=== PATIENT | male | born 1975 | race Hispanic/Latino ===

== ENCOUNTER 2024-08-22 00:36 | Emergency (ER) | payer OTHER, SELFPAY ==
[2024-08-22] MEDS ORDERED: NA CHLORIDE 0.9% 500 ML ONE (00:55)
[2024-08-22] MEDS ORDERED: METOCLOPRAMIDE 10 MG/2mL INJ ONE (00:55)
[2024-08-22] MEDS ORDERED: KETOROLAC 30 MG/ML INJ ONE (00:55)
[2024-08-22] MEDS ORDERED: DIPHENHYDRAMINE 50 MG/ML VIAL ONE (00:56)
[2024-08-22 01:08] LABS: Absolute Eosinophils 0.2 K/uL (0-0.5); Absolute Lymphocytes (CBC) 1.8 K/uL (0.7-4.9); Absolute Monocytes 0.4 K/uL (0.1-1.3); Absolute Neutrophil 5.4 K/uL (1.8-8.0); Basophils % 0.4 % (0-1.3); Eosinophils % 2.9 % (0-4.4); Hematocrit 41.9 % (39.6-49.0); Hemoglobin 14.2 g/dL (13.6-17.9); Lymphocytes % 22.9 % (15.3-44.8); MCH 30.4 pg (27.0-35.0); MCHC 33.8 g/dL (32.0-36.0); MCV 89.9 fL (80-100); MPV 7.9 fL (7.6-11.3); Monocytes % 5.2 % (3.3-12.3); Neutrophils % 68.6 % (41.7-73.7); Platelets 308 thou/uL (152-406); RBC Red Blood Cell Count 4.65 M/uL (4.33-5.43); Red Cell Distribution Width 14.2 % (12.1-15.2)
[2024-08-22 01:28] LABS: Anion Gap 8.6 mEq/L (5.0-15.0); Potassium 3.6 mEq/L (3.5-5.1); Troponin High Sensitivity 3.5 pg/mL (<58.9)
[2024-08-22 02:41] LABS: Specific Gravity 1.007 (1.005-1.030); Sqamous Epithelial None Seen /HPF (None Seen); Urine Bacteria None Seen /HPF (<20); Urine Bilirubin NEGATIVE (Negative); Urine Blood Negative (Negative); Urine Clarity Clear (Clear); Urine Color Colorless (Yellow); Urine Culture Reflex Order NOT NEEDED; Urine Glucose NEGATIVE (Negative); Urine Ketones NEGATIVE (Negative); Urine Micro Reflex YN NO BILL MICROSCOPIC; Urine Mucus Slight /HPF (None Seen); Urine Nitrite NEGATIVE (Negative); Urine Protein NEGATIVE (Negative); Urine RBC <5 /HPF (None Seen); Urine Urobilinogen Normal (Normal); Urine WBC <5 /HPF (<5); Urine pH 5.5 (5.0-7.0)
--- NOTE | 2024-08-22 02:42 | RAD REPORT ---
PROCEDURE: XR Chest, 1 View CLINICAL INDICATION: The patient is 49 years old and is Male; Chest pain. TECHNIQUE: Frontal view of the chest. COMPARISON: None. FINDINGS: LUNGS: Relatively low lung volumes bilaterally. Allowing for this and patient positioning, no focal consolidation. PLEURAL SPACE: No appreciable pleural effusion or pneumothorax. MEDIASTINUM: Unremarkable cardiomediastinal contour. BONES/JOINTS: Multilevel spondylosis. VASCULATURE: Calcified atherosclerosis of the thoracic aorta. IMPRESSION: Low lung volumes bilaterally. Allowing for this and patient positioning, no acute chest findings. Electronically signed by: Juan A Liz MD 08/22/2024 02:38 AM [facility] Due to temporary technical issues with the PACS/[employer] reporting system, reports are being tracy d by the in-house radiologist without review as a courtesy to ensure prompt reporting the interpreting radiologist is fully responsible for the content of the report. Transcribed Date/Time: 08/22/2024 2:42 AM
--- NOTE | 2024-08-22 05:27 | ER ---
Nurse's Notes [facility] Name: Gary De Santiago Age: 49 yrs Sex: Male : 1975 Arrival Date: 08/22/2024 Time: 00:36 Bed 17 Private MD: Diagnosis: Headache Presentation: 08/22 01:03 Chief complaint: Patient states: PT STATES HE WAS ASLEEP AND WOKE UP AT APPROX 2230 br2 WITH A HEADACHE AND PAIN TO NECK. PT DENIES CP. 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 Coronavirus screen: Client denies travel out of the [place] in the last 14 days. Ebola Screen: Patient denies exposure to infectious person. Patient denies travel to an Ebola-affected area in the 21 days before illness onset. Initial Sepsis Screen: Does the patient meet any 2 criteria? No. Patient's initial sepsis screen is negative. Does the patient have a suspected source of infection? No. Patient's initial sepsis screen is negative. Risk Assessment: Do you want to hurt yourself or someone else? Patient reports no desire to harm self or others. 01:03 Method Of Arrival: EMS: [facility] br2 01:03 Acuity: TALIA 3 br2 01:03 Onset of symptoms was August 21, 2024 at 22:30. br2 Triage Assessment: 01:06 General: Appears uncomfortable, Behavior is calm, cooperative. Pain: Complains of pain br2 in forehead Pain radiates to base of the skull Pain currently is 5 out of 10 on a pain scale. EENT: No signs and/or symptoms were reported regarding the EENT system. Neuro: Matthews Agitation-Sedation Scale (RASS): 0 - Alert and Calm Level of Consciousness is awake, alert, obeys commands, Oriented to person, place, time, situation. Cardiovascular: Capillary refill. Respiratory: Airway is patent Respiratory effort is even, unlabored, Respiratory pattern is regular, symmetrical. GI: No signs and/or symptoms were reported involving the gastrointestinal system. Abdomen is flat. : No signs and/or symptoms were reported regarding the genitourinary system. Derm: No signs and/or symptoms reported regarding the dermatologic system. Musculoskeletal: No signs and/or symptoms reported regarding the musculoskeletal system. Historical: - PMHx: 01:06 Parkinson's disease; br2 - Immunization history:: Adult Immunizations up to date. - Infectious Disease History:: Denies. - Social history:: Smoking status: Patient denies any tobacco usage or history of. Screenin:03 [facility] ED Fall Risk Assessment (Adult) History of falling in the last 3 months, br2 including since admission No falls in past 3 months (0 pts) Confusion or Disorientation No (0 pts) Intoxicated or Sedated No (0 pts) Impaired Gait Yes (1 pt) Mobility Assist Device Used Yes (1 pt) Altered Elimination No (0 pt) Score/Fall Risk Level 0 - 2 = Low Risk Oriented to surroundings. Abuse screen: Denies threats or abuse. Denies injuries from another. Nutritional screening: No deficits noted. Tuberculosis screening: No symptoms or risk factors identified. Assessment: 01:03 Reassessment: SEE TRIAGE ASSESSMENT. br2 01:40 Reassessment: Patient and/or family updated on plan of care and expected duration. Pain br2 level reassessed. Patient is alert, oriented x 3, equal unlabored respirations, skin warm/dry/pink. Patient states feeling better. Patient states symptoms have improved. 02:21 Reassessment: Patient and/or family updated on plan of care and expected duration. Pain br2 level reassessed. Patient is alert, oriented x 3, equal unlabored respirations, skin warm/dry/pink. Patient states feeling better. Patient states symptoms have improved. 02:28 Pain: Denies pain. br2 03:40 Reassessment: out of bed to ambulate with assist. pt states he feels like his left leg br2 is weaker than normal. 04:51 Reassessment: No changes from previously documented assessment. Patient and/or family br2 updated on plan of care and expected duration. Pain level reassessed. Patient is alert, oriented x 3, equal unlabored respirations, skin warm/dry/pink. Patient states feeling better. 05:24 Reassessment: No changes from previously documented assessment. Patient and/or family br2 updated on plan of care and expected duration. Pain level reassessed. Patient is alert, oriented x 3, equal unlabored respirations, skin warm/dry/pink. 06:40 Pain: Pain began. br2 Vital Signs: 01:03 BP 162 / 97; Pulse 105; Resp 21; Temp 97.2; Pulse Ox 99% on R/A; Weight 81.65 kg; br2 Height 5 ft. 4 in. ; Pain 5/10; 01:39 BP 121 / 79; Pulse 87; Resp 18 S; Pulse Ox 98% on R/A; br2 02:28 BP 138 / 85; Pulse 98; Resp 20; Pulse Ox 98% on R/A; Pain 0/10; br2 03:01 BP 136 / 90; Pulse 95; Resp 18; Pulse Ox 98% ; Pain 0/10; br2 04:17 BP 113 / 73; Pulse 82; Resp 18; Pulse Ox 98% ; br2 04:50 BP 107 / 71; Pulse 75; Resp 22; Pulse Ox 99% on R/A; br2 05:23 BP 108 / 76; Pulse 74; Resp 16; Pulse Ox 100% on R/A; br2 01:03 Body Mass Index 30.90 (81.65 kg, 162.56 cm) br2 01:03 Pain Scale: Adult br2 02:28 Pain Scale: Adult br2 03:01 Pain Scale: Adult br2 ED Course: 00:37 Patient arrived in ED. gm2 00:44 Nile Pierce MD is Attending Physician. ec2 00:52 Janelle Ferrara RN is Primary Nurse. br2 00:52 EKG done, by dietetic technician registered. af3 00:53 Basic Metabolic Panel Sent. br2 00:53 CBC with Diff Sent. br2 00:53 Troponin HS Sent. br2 01:03 Maintain EMS IV. IV Flushed right antecubital. br2 01:03 Patient has correct armband on for positive identification. Placed in gown. Bed in low br2 position. Call light in reach. Side rails up X 1. Provided Education on: PLAN OF CARE. Client placed on continuous cardiac and pulse oximetry monitoring. NIBP monitoring applied. monitor technician on. 01:03 Patient plan of care. br2 01:06 Triage completed. br2 01:10 XRAY Chest (1 view) In Process Unspecified. EDMS 03:46 CT Head Brain wo Cont In Process Unspecified. EDMS 05:42 No provider procedures requiring assistance completed. IV discontinued, intact, br2 bleeding controlled, No redness/swelling at site. Pressure dressing applied. Patient maintains SpO2 saturation greater than 95% on room air. Administered Medications: 01:02 Drug: metoCLOPramide IVP 10 mg IVP once; over 1 to 2 minutes Route: IVP; Site: right br2 antecubital; 01:30 Follow up: Response: No adverse reaction br2 01:02 Drug: diphenhydrAMINE IVP 12.5 mg IVP once Route: IVP; Site: right antecubital; br2 01:30 Follow up: Response: No adverse reaction br2 01:03 Drug: Ketorolac IVP 15 mg IVP once Route: IVP; Site: right antecubital; br2 01:30 Follow up: Response: No adverse reaction br2 01:03 Drug: NS 0.9% IV 500 ml 500 ml IV at 1 bolus once; to be given as a bolus over 30 br2 minutes Volume: 500 ml; Route: IV; Rate: 1 bolus; Site: right antecubital; 01:40 Follow up: Response: No adverse reaction; IV Status: Completed infusion; IV Intake: br2 500ml Medication: 01:03 VIS not applicable for this client. br2 Intake: 01:40 IV: 500ml; Total: 500ml. br2 Output: 02:56 Urine: 900ml (Voided); Total: 900ml. br2 Outcome: 05:27 Discharge ordered by MD. ec2 05:42 Discharged to home via wheelchair, br2 05:42 Condition: stable 05:42 Discharge instructions given to patient, family, Instructed on discharge instructions, follow up and referral plans. medication usage, Demonstrated understanding of instructions, follow-up care, medications, 06:26 Patient left the ED. br2 Signatures: Dispatcher [employer] EDOR Nile Pierce MD MD ec2 Bing Macedo gm2 Janelle Ferrara RN RN br2 Alla Boogie3
--- NOTE | 2024-08-22 05:27 | EDPHYS ---
Physician Documentation [facility] Name: Gary De Santiago Age: 49 yrs Sex: Male : 1975 Arrival Date: 08/22/2024 Time: 00:36 Bed 17 Private MD: ED Physician Nile Pierce HPI: 08/22 00:46 This 49 yrs old Male presents to ER via Unassigned with complaints of neck ec2 pain. 00:46 Patient arrives today for evaluation of neck pain. Complaining of neck to head pain. ec2 States symptoms started last night. Patient reports no falls injuries or trauma. History of parkinsonism. EMS had given the patient 50 mcg of fentanyl with improvement in his symptoms. Denies any chest pain or shortness of breath. Initial complaint was reportedly for chest pain however patient denies this.. Historical: - PMHx: 01:06 Parkinson's disease; br2 - Immunization history:: Adult Immunizations up to date. - Infectious Disease History:: Denies. - Social history:: Smoking status: Patient denies any tobacco usage or history of. ROS: 00:46 Constitutional: as per hpi ec2 Exam: 00:46 Constitutional: GEN: NAD Head: atraumatic Eyes: EOMI Ears: External ears are ec2 normal. CV: regular rate LUNGS: no respiratory distress ABD: non-distended SKIN: no evidence of rashes MSK: no evidence of trauma Vital Signs: 01:03 BP 162 / 97; Pulse 105; Resp 21; Temp 97.2; Pulse Ox 99% on R/A; Weight 81.65 kg; br2 Height 5 ft. 4 in. ; Pain 5/10; 01:39 BP 121 / 79; Pulse 87; Resp 18 S; Pulse Ox 98% on R/A; br2 02:28 BP 138 / 85; Pulse 98; Resp 20; Pulse Ox 98% on R/A; Pain 0/10; br2 03:01 BP 136 / 90; Pulse 95; Resp 18; Pulse Ox 98% ; Pain 0/10; br2 04:17 BP 113 / 73; Pulse 82; Resp 18; Pulse Ox 98% ; br2 04:50 BP 107 / 71; Pulse 75; Resp 22; Pulse Ox 99% on R/A; br2 05:23 BP 108 / 76; Pulse 74; Resp 16; Pulse Ox 100% on R/A; br2 01:03 Body Mass Index 30.90 (81.65 kg, 162.56 cm) br2 01:03 Pain Scale: Adult br2 02:28 Pain Scale: Adult br2 03:01 Pain Scale: Adult br2 MDM: 00:44 Medical Screening Exam initiated ec2 00:46 Data reviewed: vital signs, nurses notes. ED course: Patient arrives today for head and ec2 neck pain. Examination is unrevealing. Will obtain lab work and treat the patient's symptoms. Doubt ACS or PE given descriptors of symptoms. Doubt intracranial brain bleed. Possible headache syndrome, possible MSK pain.. 00:52 ED course: EKG independently reviewed and interpreted by me, shows sinus tachycardia, ec2 rate 104, no acute ST segment elevations, intervals are nonactionable.. 02:36 ED course: On reassessment patient reports complete resolution of his head and neck ec2 pain. Pending urine studies.. 05:27 ED course: CT scan of the head is negative. Patient able to ambulate. Will discharge ec2 home. Return precautions given.. 08/22 00:45 Order name: Basic Metabolic Panel; Complete Time: 02:11 ec2 08/22 00:45 Order name: CBC with Diff; Complete Time: 02:11 ec2 08/22 00:45 Order name: Troponin HS; Complete Time: 02:11 ec2 08/22 00:45 Order name: UAM; Complete Time: 02:42 ec2 08/22 00:45 Order name: XRAY Chest (1 view); Complete Time: 02:48 ec2 08/22 03:27 Order name: CT Head Brain wo Cont ec2 08/22 00:45 Order name: Cardiac monitoring; Complete Time: 00:52 ec2 08/22 00:45 Order name: EKG - Nurse/Tech; Complete Time: 00:52 ec2 08/22 00:45 Order name: IV Saline Lock; Complete Time: 00:52 ec2 08/22 00:45 Order name: Labs collected and sent; Complete Time: 00:52 ec2 08/22 00:45 Order name: O2 Per Protocol; Complete Time: 00:52 ec2 08/22 00:45 Order name: O2 Sat Monitoring; Complete Time: 00:52 ec2 Administered Medications: 01:02 Drug: metoCLOPramide IVP 10 mg IVP once; over 1 to 2 minutes Route: IVP; Site: right br2 antecubital; 01:30 Follow up: Response: No adverse reaction br2 01:02 Drug: diphenhydrAMINE IVP 12.5 mg IVP once Route: IVP; Site: right antecubital; br2 01:30 Follow up: Response: No adverse reaction br2 01:03 Drug: Ketorolac IVP 15 mg IVP once Route: IVP; Site: right antecubital; br2 01:30 Follow up: Response: No adverse reaction br2 01:03 Drug: NS 0.9% IV 500 ml 500 ml IV at 1 bolus once; to be given as a bolus over 30 br2 minutes Volume: 500 ml; Route: IV; Rate: 1 bolus; Site: right antecubital; 01:40 Follow up: Response: No adverse reaction; IV Status: Completed infusion; IV Intake: br2 500ml Disposition Summary: 08/22/24 05:27 Discharge Ordered Notes: Location: Home ec2 Condition: Stable ec2 Diagnosis - Headache ec2 Followup: ec2 - With: Private Physician - When: - Reason: Re-evaluation by your physician Discharge Instructions: - Discharge Summary Sheet ec2 - General Headache Without Cause ec2 Forms: - Medication Reconciliation Form ec2 - Antibiotic Education ec2 - Prescription Opioid Use ec2 - Patient Portal Instructions ec2 - Leadership Thank You Letter ec2 Prescriptions: - Compazine 10 mg Oral Tablet - take 1 tablet ORAL route every 8 hours As needed; 20 tablet; Refills: 0, ec2 Product Selection Permitted Signatures: Dispatcher [employer] EDMS Nile Pierce MD MD ec2 Janelle Ferrara RN RN br2 Corrections: (The following items were deleted from the chart) 00:46 00:46 BASIC METABOLIC PANEL+C.LAB.BRZ ordered. EDMS EDMS 00:46 00:46 CBC+H.LAB.BRZ ordered. EDMS EDMS 00:46 00:46 Troponin High Sensitivity+C.LAB.BRZ ordered. EDMS EDMS 00:46 00:46 Chest Single View+RAD.RAD.BRZ ordered. EDMS EDMS 00:46 00:46 Urinalysis W/Microscopic+U.LAB.BRZ ordered. EDMS EDMS
--- NOTE | 2024-08-22 06:17 | RAD REPORT ---
PROCEDURE: CT Head Without Intravenous Contrast CLINICAL INDICATION: The patient is 49 years old and is Male; Headache. TECHNIQUE: Axial computed tomography images of the head/brain without intravenous contrast. Sagittal and coron al reformatted images were created and reviewed. This CT exam was performed using one or more of the following dose reduction techniques: automated exposure control, adjustment of the mA and/or kV according to patient size, and/or use of iterative reconstruction technique. COMPARISON: None. FINDINGS: BRAIN: No extra-axial fluid collection. No intracranial hemorrhage. No transtentorial herniation. N o focal arrington-white matter differentiation abnormality. MIDLINE SHIFT: None. VENTRICLES: Unremarkable No ventriculomegaly. BONES/JOINTS: No fracture of the calvarium or visualized facial bones. SOFT TISSUES: Unremarkable SINUSES: No masses, bony erosion or evidence of acute sinusitis. MASTOID AIR CELLS: Unremarkable as visualized. No mastoid effusion. IMPRESSION: No acute intracranial abnormality. No fracture of the calvarium or visualized facial bones. Electronically signed by: Juan A Liz MD 08/22/2024 05:24 AM [facility] Due to temporary technical issues with the PACS/[employer] reporting system, reports are being tracy d by the in-house radiologist without review as a courtesy to ensure prompt reporting the interpreting radiologist is fully responsible for the content of the report. Transcribed Date/Time: 08/22/2024 6:17 AM
--- NOTE | 2024-08-24 10:50 | EKG ---
Test Date: 2024-08-22 Test Time: 00:49:30 Level Vial Grinder: ROO[place]ELT MEASUREMENT RESULTS: Intervals: Rate: 104 WI: 166 QRSD: 84 QT: 334 QTc: 439 Lilly: P: 27 WI: 166 QRS: 1 T: 4 INTERPRETIVE STATEMENTS: Sinus tachycardia Inferior infarct, age undetermined Anterior infarct, age undetermined Abnormal ECG Compared to ECG 05/24/2017 10:19:29 Sinus rhythm no longer present Left ventricular hypertrophy no longer present Myocardial infarct finding still present Electronically Signed On 08-24-24 10:49:28 [employer]ES [employer]IST by Samson Beltran
[2024-08-25 15:05] VITALS: BP 108/76; TEMP 97.2; O2SAT 100
== END 2024-08-22 06:26 | disposition home or self-care (01) ==
LOC: ER 00:36
DX: R51.9 Headache, unspecified (principal); G20.A1 Parkinson's disease without dyskinesia, without mention of fluctuations
CPT/HCPCS: 96361; 93005; 85025; 81001; 80048; 36415; 84484; 70450; 71045; 96375; 96374; 99285; J2765; J1200; J7040